=== PATIENT | male | born 1995 | race Caucasian/White ===

== ENCOUNTER 2017-06-04 23:42 | Emergency (ER) | payer OTHER ==
[~2017-06-04] VITALS: Ht 188 cm; Wt 118.2 kg
[2017-06-05 03:04] LABS: MEAN CORPUSCULAR HEMOGLOBIN 29.7 pg (27.0-33.0); MEAN CORPUSCULAR HGB CONC 35.9 g/dl (32.0-36.5); MEAN CORPUSCULAR VOLUME 82.6 fl (80.0-96.0); RED CELL DISTRIBUTION WIDTH 12.3 % (11.5-14.5); WHITE BLOOD COUNT 10.6 K/mm3 (4.0-10.0)
[2017-06-05 03:17] LABS: METHADONE URINE NEGATIVE (NEGATIVE)
[2017-06-05 03:27] LABS: ALBUMIN 4.5 GM/DL (3.2-5.2); ALBUMIN/GLOBULIN RATIO 1.29 (1.00-1.93); ALKALINE PHOSPHATASE 65 U/L (45-117); ALT/SGPT 29 U/L (12-78); ANION GAP 7 MEQ/L (8-16); AST/SGOT 13 U/L (15-37); BILIRUBIN,DIRECT 0.3 MG/DL (0.0-0.2); BILIRUBIN,TOTAL 1.6 MG/DL (0.2-1.0); BLOOD UREA NITROGEN 13 MG/DL (7-18); CALCIUM LEVEL 9.2 MG/DL (8.5-10.1); CARBON DIOXIDE LEVEL 28 MEQ/L (21-32); CHLORIDE LEVEL 107 MEQ/L (98-107); CREATININE FOR GFR 1.06 MG/DL (0.70-1.30); GLOMERULAR FILTRATION RATE > 60.0 (>60); GLUCOSE, FASTING 124 MG/DL (70-105); POTASSIUM SERUM 4.1 MEQ/L (3.5-5.1); SODIUM LEVEL 142 MEQ/L (136-145)
[2017-06-05 11:23] VITALS: BP 123/87
== END 2017-06-05 11:25 | disposition home or self-care (01) ==
LOC: M ED 23:42
DX: Z60.9 Problem related to social environment, unspecified (principal); F43.20 Adjustment disorder, unspecified

== ENCOUNTER 2018-10-17 05:23 | Emergency (ER) | payer OTHER, SELFPAY ==
[~2018-10-17] VITALS: Ht 188 cm; Wt 113.6 kg
[2018-10-17 05:23] VITALS: BP 150/79
== END 2018-10-17 06:57 | disposition left against medical advice (07) ==
LOC: M ED 05:23
DX: Z53.29 Procedure and treatment not carried out because of patient's decision for other reasons (principal)

== ENCOUNTER 2021-04-20 14:36 | Emergency (ER) | payer SELFPAY ==
[~2021-04-20] VITALS: Ht 188 cm; Wt 121.0 kg
[2021-04-20 14:41] VITALS: BP 132/80
[2021-04-21] MEDS ORDERED: CIPR7.5D5 AS (07:41)
== END 2021-04-20 15:30 | disposition left against medical advice (07) ==
LOC: M ED 14:36
DX: Z53.21 Procedure and treatment not carried out due to patient leaving prior to being seen by health care provider (principal)

== ENCOUNTER 2021-04-21 06:01 | Emergency (ER) | payer SELFPAY ==
[~2021-04-21] VITALS: Ht 188 cm; Wt 123.0 kg
[2021-04-21 06:02] VITALS: BP 132/83
[2021-04-21] MEDS ORDERED: CIPR7.5D5 AS (07:41)
== END 2021-04-21 07:55 | disposition home or self-care (01) ==
LOC: M ED 06:01
DX: H60.92 Unspecified otitis externa, left ear (principal); H61.21 Impacted cerumen, right ear

== ENCOUNTER 2022-06-09 16:51 | Emergency (ER) | payer SELFPAY ==
[~2022-06-09] VITALS: Ht 188 cm; Wt 106.8 kg
[~2022-06-09 16:51] MED LIST: CIPR7.5D5 AS
[2022-06-09] MEDS ORDERED: LIDOCAINE 2% W/EPINEPHRINE 20ML VIAL **PRES FREE As Ordered ONE (20:13)
[2022-06-09] MEDS ORDERED: LIDOCAINE 2% W/EPINEPHRINE 20ML VIAL **PRES FREE INJ ONE (20:15)
[2022-06-09] MEDS ORDERED: CEPH500C PO (20:49)
[2022-06-09] MEDS ORDERED: CEPHALEXIN 500 MG CAP PO ONE (20:50)
[2022-06-09] MEDS ORDERED: BOOSTRIX/ADACEL VACCINE (DIPHTH/PERTUSS/ACELL/TETANUS) 0.5ML SYR IM ONE (20:50)
[2022-06-09 21:08] VITALS: BP 131/82
[2022-06-10] MEDS ORDERED: CEPH500C PO (22:27)
== END 2022-06-09 21:12 | disposition home or self-care (01) ==
LOC: M ED 16:51 → EDBD 16:51 → M ED 21:12
DX: S51.811A Laceration without foreign body of right forearm, initial encounter (principal); W25.XXXA Contact with sharp glass, initial encounter

== ENCOUNTER 2022-06-10 20:08 | Inpatient (IN) | payer SELFPAY ==
[~2022-06-10] VITALS: Ht 188 cm; Wt 112.7 kg
[~2022-06-10 20:08] MED LIST changes: +CEPH500C PO
[2022-06-10] MEDS ORDERED: NORCO, ANEXSIA 5/325MG TABLET (HYDROcodone/ACETAMINOPHEN) PO ONE (21:05)
[2022-06-10] MEDS ORDERED: EMLA CREAM 5GM TUBE (LIDOCAINE/PRILOCAINE) TOP ONE (21:20)
[2022-06-10] MEDS ORDERED: CEFTAROLINE FOSAMIL 600 MG in D5W MINI-BAG PLUS 50 ML IV ONE (22:05)
[2022-06-10] MEDS ORDERED: MORPHINE 4 MG/ML 1ML VIAL/SYRINGE IV ONE (22:05)
[2022-06-10] MEDS ORDERED: CEPH500C PO (22:27)
[2022-06-10] MEDS ORDERED: HOME MED LIST COMPLETE! XX SCH (22:30)
[2022-06-10 22:33] LABS: BASO # 0.1 10^3/uL (0.0-0.2); BASO % 0.4 % (0.0-1.0); EOS % 0.2 % (0.0-3.0); HEMATOCRIT 38.7 % (42.0-52.0); HEMOGLOBIN 13.5 g/dl (13.5-17.5); LYMPH # 1.9 10^3/uL (1.5-5.0); LYMPH % 13.8 % (24.0-44.0); MEAN CORPUSCULAR HEMOGLOBIN 28.2 pg (27.0-33.0); MEAN CORPUSCULAR HGB CONC 34.9 g/dl (32.0-36.5); MONO # 1.3 10^3/uL (0.0-0.8); MONO % 9.7 % (2.0-8.0); NEUTROPHILS # 10.2 10^3/uL (1.5-8.5); NEUTROPHILS % 75.3 % (36.0-66.0); PLATELET COUNT, AUTOMATED 249 10^3/uL (150-450); RED BLOOD COUNT 4.78 10^6/uL (4.30-6.10); WHITE BLOOD COUNT 13.6 10^3/uL (4.0-10.0)
[2022-06-10 22:58] LABS: BLOOD UREA NITROGEN 17 MG/DL (7-18); CALCIUM LEVEL 8.7 MG/DL (8.5-10.1); CARBON DIOXIDE LEVEL 26 MEQ/L (21-32); CHLORIDE LEVEL 103 MEQ/L (98-107); CREATININE FOR GFR 0.92 MG/DL (0.70-1.30); GLOMERULAR FILTRATION RATE > 60.0 (>60); GLUCOSE, FASTING 98 MG/DL (70-100); POTASSIUM SERUM 4.1 MEQ/L (3.5-5.1); SODIUM LEVEL 138 MEQ/L (136-145)
[2022-06-10] MEDS ORDERED: fentaNYL 100 MCG/2 ML INJECTION IV ONE (23:05)
[2022-06-10] MEDS ORDERED: MOM 30ML SUSPENSION UDC PO PRN (23:15)
[2022-06-10] MEDS: NS 1,000 ML IV SCH (23:15)
[2022-06-10] MEDS ORDERED: ACETAMINOPHEN TAB 650MG DOSE (2X325MG) PO PRN (23:15)
[2022-06-11 00:35] VITALS: BP 120/80
[2022-06-11] MEDS: NS 1,000 ML IV SCH (00:56)
[2022-06-11] MEDS: MORPHINE 2 MG/ML 1ML VIAL IV PRN ×2 (00:57→05:00)
[2022-06-11 06:00] VITALS: BP 110/76
[2022-06-11] MEDS ORDERED: MORPHINE 2 MG/ML 1ML VIAL IV ONE (06:30)
[2022-06-11 06:34] LABS: HEMATOCRIT 37.3 % (42.0-52.0); HEMOGLOBIN 12.9 g/dl (13.5-17.5); MEAN CORPUSCULAR HEMOGLOBIN 28.4 pg (27.0-33.0); MEAN CORPUSCULAR HGB CONC 34.6 g/dl (32.0-36.5); MEAN CORPUSCULAR VOLUME 82.2 fl (80.0-96.0); PLATELET COUNT, AUTOMATED 200 10^3/uL (150-450); RED BLOOD COUNT 4.54 10^6/uL (4.30-6.10); WHITE BLOOD COUNT 10.6 10^3/uL (4.0-10.0)
[2022-06-11 07:15] LABS: ALBUMIN 3.5 GM/DL (3.2-5.2); ALT/SGPT 18 U/L (12-78); BILIRUBIN,TOTAL 1.6 MG/DL (0.2-1.0); BLOOD UREA NITROGEN 13 MG/DL (7-18); CALCIUM LEVEL 8.5 MG/DL (8.5-10.1); CARBON DIOXIDE LEVEL 26 MEQ/L (21-32); CHLORIDE LEVEL 107 MEQ/L (98-107); CREATININE FOR GFR 0.75 MG/DL (0.70-1.30); GLOMERULAR FILTRATION RATE > 60.0 (>60); GLUCOSE, FASTING 86 MG/DL (70-100); POTASSIUM SERUM 3.7 MEQ/L (3.5-5.1); SODIUM LEVEL 138 MEQ/L (136-145); TOTAL PROTEIN 6.4 GM/DL (6.4-8.2)
[2022-06-11] MEDS ORDERED: HEPARIN SOD (PORCINE) 5000UNITS/ML 1ML VIAL/SYRINGE SC SCH (09:00)
[2022-06-11] MEDS ORDERED: LIDOCAINE 2% 100MG/5ML SDV (FOR ANES.) As Ordered ONE (10:43)
[2022-06-11] MEDS ORDERED: propofoL 200 MG/20 ML VIAL As Ordered ONE ×2 (10:43→12:56)
[2022-06-11] MEDS ORDERED: fentaNYL 100 MCG/2 ML INJECTION As Ordered ONE ×2 (10:44→13:05)
[2022-06-11] MEDS ORDERED: MIDAZOLAM INJ 2MG/2ML VIAL (J2250 PER 1MG) As Ordered ONE (10:44)
[2022-06-11] MEDS ORDERED: LIDOCAINE 1% SDV 30ML VIAL As Ordered ONE (12:01)
[2022-06-11] MEDS ORDERED: BUPIVACAINE HCL 0.25% 30ML VIAL As Ordered ONE (12:01)
[2022-06-11] MEDS ORDERED: ceFAZolin 2 GM/D5W 50 ML IV BAG (J0690 PER 500MG) As Ordered ONE (12:20)
[2022-06-11] MEDS ORDERED: dexameTHASONE 4 MG/ML 1ML VIAL (J1100 PER 1MG) As Ordered ONE (12:57)
[2022-06-11] MEDS ORDERED: ONDANSETRON 4MG 2ML VIAL As Ordered ONE (12:57)
[2022-06-11] MEDS ORDERED: KETOROLAC 60MG 2ML VIAL As Ordered ONE (12:57)
[2022-06-11] MEDS ORDERED: BACITRACIN OINTMENT 30GM TUBE As Ordered ONE (13:00)
[2022-06-11] MEDS ORDERED: fentaNYL 100 MCG/2 ML INJECTION IV PRN (13:10)
[2022-06-11] MEDS ORDERED: ONDANSETRON 4MG 2ML VIAL IV PRN (13:10)
[2022-06-11] MEDS ORDERED: oxyCODONE 5MG TAB PO PRN (13:10)
[2022-06-11] MEDS ORDERED: HYDROMORPHONE HCL 0.5 MG/ 0.5 ML SYRINGE (J1170 PER 1) IV PRN (13:10)
[2022-06-11] MEDS ORDERED: LR 1,000 ML IV SCH (13:10)
[2022-06-11 14:30] VITALS: BP 118/75
[2022-06-11 15:00] VITALS: BP 120/77
[2022-06-11] MEDS ORDERED: CEPH25SS PO (15:27)
[2022-06-11] MEDS ORDERED: CEPH500C PO (15:49)
[2022-06-11] MEDS ORDERED: OXYC5CAP56 PO (15:49)
[2022-06-11] MEDS ORDERED: ACET1TAB55 PO (15:49)
== END 2022-06-11 16:45 | disposition home or self-care (01) | DRG 364 ==
LOC: M ED 20:08 → M ED INP 23:11 → M MS5PR 06-11 00:36
PROVIDERS: ADMIT Family Medicine; ATTEND Family Medicine
PROC: 0KQ90ZZ Repair Right Lower Arm and Wrist Muscle, Open Approach (ICD-10-PCS; 2022-06-11)
PROC: 0JBG0ZZ Excision of Right Lower Arm Subcutaneous Tissue and Fascia, Open Approach (ICD-10-PCS; 2022-06-11)
PROC: 0JCG0ZZ Extirpation of Matter from Right Lower Arm Subcutaneous Tissue and Fascia, Open Approach (ICD-10-PCS; principal; 2022-06-11 09:53)
DX: S51.821A Laceration with foreign body of right forearm, initial encounter (principal); W25.XXXA Contact with sharp glass, initial encounter; Y92.9 Unspecified place or not applicable; Y93.9 Activity, unspecified; Y99.9 Unspecified external cause status